=== PATIENT | male | born 1965 | race Asian ===

== ENCOUNTER 2020-04-20 06:43 | Day surgery (SDC) | payer OTHER, SELFPAY ==
[~2020-04-20] VITALS: Ht 170.2 cm; Wt 63.5 kg
[2020-04-20] MEDS ORDERED: LIDOCAINE 2% 100 MG/5 ML UJET TP ONE (08:44)
[2020-04-20] MEDS ORDERED: fentaNYL citrate 0.05 MG/ML VIAL ONE (08:44)
[2020-04-20] MEDS ORDERED: MIDAZOLAM 2 MG/2 ML VIAL ONE (08:44)
[2020-04-20] MEDS ORDERED: fentaNYL citrate 0.05 MG/ML VIAL IVP ONE (17:05)
[2020-04-20] MEDS ORDERED: MIDAZOLAM 2 MG/2 ML VIAL IVP ONE (17:05)
== END 2020-04-20 10:00 | disposition home or self-care (01) ==
LOC: MOR 06:43 → MMU 06:44 → MOR 10:00
PROVIDERS: ATTEND Internal Medicine Gastroenterology
DX: K62.5 Hemorrhage of anus and rectum (principal); D12.2 Benign neoplasm of ascending colon; D12.3 Benign neoplasm of transverse colon; K64.8 Other hemorrhoids; K29.70 Gastritis, unspecified, without bleeding; E11.9 Type 2 diabetes mellitus without complications; Z79.84 Long term (current) use of oral hypoglycemic drugs; Z79.899 Other long term (current) drug therapy; Z20.828 Contact with and (suspected) exposure to other viral communicable diseases
CPT/HCPCS: 36415; 43239; 45385; 86677; J2250; J3010; U0003